=== PATIENT | male | born 2005 | race African-American/Black ===

== ENCOUNTER 2024-09-20 19:17 | Emergency (ER) | payer SELFPAY ==
[2024-09-20] MEDS ORDERED: Acetaminophen 500 MG TAB ONE (20:22)
[2024-09-20 20:50] LABS: Bilirubin Neg (Negative); Blood, Urine Negative (Negative); Glucose, Urine (Dipstick) Normal (Negative); Ketone, Urine Negative (Negative); Leukocyte Negative (Negative); Nitrite Negative (Negative); Protein, Urine (Dipstick) Negative (Neg-Trace); Urobilinogen Normal mg/dL (Less than 2)
[2024-09-20 20:51] LABS: Clarity Hazy (Clear)
[2024-09-20 21:41] LABS: Bacteria/HPF 1+ HPF (None Seen); CAUTI Indications for Culture Pelvic or flank pain; Mucous/LPF 1+ LPF (<2+); RBC/HPF 0-3 HPF (0-3); Squamous Epithelial None Seen HPF (0-3)
[2024-09-20 21:43] LABS: WBC/HPF 0-3 HPF (0-3)
[2024-09-20 21:44] LABS: Urine Culture Reflex No No
== END 2024-09-20 21:05 | disposition home or self-care (01) ==
LOC: CSHERS 19:17
DX: N50.812 Left testicular pain (principal)
CPT/HCPCS: 76870; 81001; 93976